=== PATIENT | female | born 2005 | race Caucasian/White ===

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

== ENCOUNTER 2023-12-03 13:08 | Emergency (ER) | payer OTHER ==
[~2023-12-03] VITALS: Ht 157.5 cm; Wt 47.6 kg
[2023-12-03 13:20] VITALS: BP_SYST 109; PULSE 91; RESP 18; TEMP 98.3; O2SAT 99
[2023-12-03] MEDS ORDERED: CYCL10TA24 PO (15:21)
[2023-12-03] MEDS ORDERED: IBUP-1968 PO (15:21)
[2023-12-03 15:27] VITALS: BP_SYST 109; PULSE 91; RESP 18; TEMP 98.3; O2SAT 99
== END 2023-12-03 15:27 | disposition home or self-care (01) ==
LOC: SED 13:08
DX: S00.01XA Abrasion of scalp, initial encounter (principal); S10.91XA Abrasion of unspecified part of neck, initial encounter; R51.9 Headache, unspecified; Z79.899 Other long term (current) drug therapy; V89.2XXA Person injured in unspecified motor-vehicle accident, traffic, initial encounter; Y93.89 Activity, other specified; Y92.89 Other specified places as the place of occurrence of the external cause; Y99.8 Other external cause status
CPT/HCPCS: 70450-TC; 72125-TC; 81025; 99284

== ENCOUNTER 2024-04-30 14:01 | Emergency (ER) | payer OTHER ==
[~2024-04-30] VITALS: Ht 157.5 cm; Wt 48.1 kg
[~2024-04-30 14:01] MED LIST: CYCL10TA24 PO; IBUP-1968 PO
[2024-04-30 14:28] VITALS: BP_SYST 108; PULSE 97; RESP 16; TEMP 98; O2SAT 100
[2024-04-30] MEDS: IBUPROFEN 400 MG TABLET PO ONE (15:30)
[2024-04-30] MEDS ORDERED: IBUP-1969 PO (15:31)
[2024-04-30 15:38] VITALS: BP_SYST 105; PULSE 90; RESP 16; TEMP 98; O2SAT 100
== END 2024-04-30 15:40 | disposition home or self-care (01) ==
LOC: SED 14:01
DX: S30.0XXA Contusion of lower back and pelvis, initial encounter (principal); Z79.899 Other long term (current) drug therapy; V49.40XA Driver injured in collision with unspecified motor vehicles in traffic accident, initial encounter; Y93.89 Activity, other specified; Y92.89 Other specified places as the place of occurrence of the external cause; Y99.8 Other external cause status
CPT/HCPCS: 99282